=== PATIENT | female | born 1995 | race Two or more races ===

== ENCOUNTER 2023-11-08 20:54 | Emergency (ER) | payer BC, MEDICAID, SELFPAY ==
[~2023-11-08] VITALS: Ht 162.6 cm; Wt 85.0 kg
[2023-11-08 22:32] VITALS: BP 119/80; PULSE 66; RESP 16; TEMP 97.8; O2SAT 98
== END 2023-11-08 22:35 | disposition home or self-care (01) ==
LOC: ER 20:54
DX: F45.8 Other somatoform disorders (principal)
CPT/HCPCS: 71045; 93005; 99283

== ENCOUNTER 2024-08-10 03:44 | Emergency (ER) | payer BC ==
[~2024-08-10] VITALS: Ht 162.6 cm; Wt 76.0 kg
[2024-08-10 03:46] VITALS: TEMP 98.4
[2024-08-10 05:00] VITALS: BP 108/66; PULSE 63; RESP 16; O2SAT 100
== END 2024-08-10 05:04 | disposition home or self-care (01) ==
LOC: ER 03:44
DX: R10.13 Epigastric pain (principal); R11.0 Nausea
CPT/HCPCS: 99284